=== PATIENT | male | born 1970 | race Caucasian/White ===

== ENCOUNTER → 2016-06-04 | Outpatient (CLI) | payer OTHER, BC ==
--- NOTE | 2016-06-04 17:35 | REP ---
MRI right shoulder without and with IV gadolinium: History: Rule out rotator cuff tear versus spreading malignancy. 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 Pain in the right shoulder. Comparison radiographs 03/21/2016. Gadolinium enhancement dose: 16.6 mL of intravenous ProHance is administered. Technique: Axial, oblique coronal, oblique sagittal imaging planes utilized. T1 and T2-weighted scans are included with without fat saturation. MRI findings: There is some motion artifact on the initial T2 sequences. There is a small glenohumeral joint effusion. There is also a small subacromial subdeltoid bursal effusion. Cortical and medullary bone signal intensity is normal. There is no evidence to suggest hematogenous metastatic disease. There is osteoarthritic hypertrophy at the acromioclavicular joint. Minimal inferolateral acromion process spurring is seen. There is diffuse swelling and increased signal intensity in the supraspinatus tendon on oblique coronal T1-weighted scans consistent with tendonitis tendinosis change. Some T2 hyperintensity is seen in the distal tendon along the bursal surface of the tendon consistent with a partial thickness cuff lesion. No full-thickness rotator cuff tear is seen. There is tendinosis in the distal subscapularis tendon as well. The infraspinatus and biceps tendons appear intact. Post gadolinium enhanced images show the expected synovial enhancement and enhancement along the subdeltoid bursa. There is no enhancement suspicious for malignancy. Impression: Tendonitis tendinosis change in the supraspinatus and subscapularis tendons. Partial-thickness bursal surface distal supraspinatus tendon lesions seen. No labral tear is seen. 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 No evidence to suggest metastatic disease. Signed by Robert Alberto MD 06/04/2016 07:30 P
== END ==
LOC: M RAD 14:52
PROVIDERS: ATTEND Orthopaedic Surgery
DX: M75.81 Other shoulder lesions, right shoulder (principal); M19.011 Primary osteoarthritis, right shoulder
CPT/HCPCS: 73223; A9576

== ENCOUNTER → 2017-12-07 | Outpatient (CLI) | payer BC, OTHER ==
[2017-12-07 08:32] LABS: HEMATOCRIT 41.8 % (42.0-52.0); HEMOGLOBIN 13.8 g/dl (13.5-17.5); MEAN CORPUSCULAR HEMOGLOBIN 31.1 pg (27.0-33.0); MEAN CORPUSCULAR VOLUME 94.1 fl (80.0-96.0); PLATELET COUNT, AUTOMATED 236 10^3/uL (150-450); RED BLOOD COUNT 4.44 10^6/uL (4.30-6.10); RED CELL DISTRIBUTION WIDTH 12.4 % (11.5-14.5); WHITE BLOOD COUNT 6.1 10^3/uL (4.0-10.0)
[2017-12-07 08:59] LABS: ALBUMIN 3.5 GM/DL (3.2-5.2); ALBUMIN/GLOBULIN RATIO 1.17 (1.00-1.93); ALKALINE PHOSPHATASE 59 U/L (45-117); ALT/SGPT 19 U/L (12-78); ANION GAP 6 MEQ/L (8-16); AST/SGOT 12 U/L (7-37); BILIRUBIN,TOTAL 0.6 MG/DL (0.2-1.0); BLOOD UREA NITROGEN 26 MG/DL (7-18); CALCIUM LEVEL 8.7 MG/DL (8.5-10.1); CARBON DIOXIDE LEVEL 29 MEQ/L (21-32); CHLORIDE LEVEL 111 MEQ/L (98-107); CHOLESTEROL LEVEL 194 MG/DL (<200); CHOLESTEROL RISK RATIO 2.586 (<5); CREATININE FOR GFR 1.24 MG/DL (0.70-1.30); GLOMERULAR FILTRATION RATE > 60.0 (>60); GLUCOSE, FASTING 93 MG/DL (70-100); HDL CHOLESTEROL 75 MG/DL (>40); LDL CHOLESTEROL 104.8 MG/DL (<100); NON-HDL-C 119 MG/DL; POTASSIUM SERUM 4.1 MEQ/L (3.5-5.1); PROSTATIC SPECIFIC AG MONITOR 0.39 NG/ML (< 4.0); SODIUM LEVEL 146 MEQ/L (136-145); THYROID STIMULATING HORMONE 0.978 uIU/ML (0.358-3.740); THYROXINE (T4) 8.7 UG/DL (4.5-12.0); TOTAL PROTEIN 6.5 GM/DL (6.4-8.2); TRIGLYCERIDES LEVEL 71 MG/DL (<150)
[2017-12-07 09:01] LABS: TOTAL 25(OH) VITAMIN D 23.2 NG/ML (30.0-100.0)
[2017-12-07 09:02] LABS: TESTOSTERONE 535 NG/DL (241-827)
[2017-12-07 09:03] LABS: TOTAL T3 102.7 NG/DL (60.0-181.0)
[2017-12-07 12:14] LABS: ESTIMATED AVERAGE GLUCOSE 123 MG/DL (60-110); HEMOGLOBIN A1c 5.9 %
== END ==
LOC: M LAB 07:27
DX: I10 Essential (primary) hypertension (principal)
CPT/HCPCS: 84403

== ENCOUNTER → 2018-04-11 | Outpatient (CLI) | payer BC, OTHER ==
[~2018-04-11] MED LIST: E-Z-GAS II EFFERVESCENT PACKET (SODIUM BICARB./CITRIC ACID/SIMETHICONE) As Ordered; E-Z-HD 98% w/w 340GM SUSP BTL As Ordered; E-Z-PAQUE 96% w/w SUSP 176GM BTL As Ordered
== END ==
LOC: M RAD 09:30
DX: K44.9 Diaphragmatic hernia without obstruction or gangrene (principal); R13.12 Dysphagia, oropharyngeal phase; K21.9 Gastro-esophageal reflux disease without esophagitis
CPT/HCPCS: 74241

== ENCOUNTER → 2020-06-25 | Outpatient (CLI) | payer BC, OTHER ==
[2020-06-25 08:24] LABS: HEMATOCRIT 42.9 % (42.0-52.0); HEMOGLOBIN 14.2 g/dl (13.5-17.5); MEAN CORPUSCULAR HEMOGLOBIN 30.7 pg (27.0-33.0); MEAN CORPUSCULAR HGB CONC 33.1 g/dl (32.0-36.5); MEAN CORPUSCULAR VOLUME 92.9 fl (80.0-96.0); PLATELET COUNT, AUTOMATED 204 10^3/uL (150-450); RED BLOOD COUNT 4.62 10^6/uL (4.30-6.10)
[2020-06-25 08:53] LABS: ALBUMIN 3.8 GM/DL (3.2-5.2); BILIRUBIN,TOTAL 0.3 MG/DL (0.2-1.0); CALCIUM LEVEL 8.8 MG/DL (8.5-10.1); CHOLESTEROL RISK RATIO 2.671 (<5); CREATININE FOR GFR 1.49 MG/DL (0.70-1.30); GLOMERULAR FILTRATION RATE 52.9 (>56); POTASSIUM SERUM 4.3 MEQ/L (3.5-5.1); PROSTATIC SPECIFIC AG MONITOR 0.31 NG/ML (< 4.00); THYROID STIMULATING HORMONE 3.37 uIU/ML (0.358-3.740); TOTAL PROTEIN 6.5 GM/DL (6.4-8.2)
--- NOTE | 2020-06-25 09:44 | REP ---
INDICATION: HTN, FATIGUE. COMPARISON: 01/22/2016, 03/15/2014. TECHNIQUE: Two views FINDINGS: Lung snell are well inflated without pleural effusion or acute infiltrate. There is a density calcified granuloma in the right lower lung zone as before. Few small calcified hilar nodes are suggested. There is no infiltrate, effusion or parenchymal mass. The heart, mediastinal and hilar contours stable and unremarkable. The aorta and airway intact. Bony thorax shows some surgical anchors over the right shoulder IMPRESSION: No acute cardiopulmonary change. Stable chest. <Electronically signed by Cornelius Rondon > 06/25/20 [id number]
--- NOTE | 2020-06-27 00:33 | ECGEPIP ---
[facility] Test Date: 2020-06-25 Pat Name: ANDREEA JACOBS Department: Room: - Gender: Male Manager Of Financial: REKHA : 1970 Requested By: Danny Andrade Order Number: [id number] Reading MD: Arnel Murillo Measurements Intervals [place] Rate: 54 P: 58 HI: 176 QRS: 50 QRSD: 92 T: 46 QT: 410 QTc: 388 Interpretive Statements Sinus bradycardia Borderline low limb lead voltages. Last tracing on 01/22/16, 12:23. No significant changes. Electronically Signed on 06-27-2020 0:33:23 EST by Arnel Murillo
== END ==
LOC: M LAB 07:12
PROVIDERS: ATTEND Family Medicine
DX: I10 Essential (primary) hypertension (principal); R53.83 Other fatigue; R00.1 Bradycardia, unspecified

== ENCOUNTER → 2020-07-27 | Outpatient (CLI) | payer BC, OTHER ==
[~2020-07-27] MED LIST changes: -E-Z-GAS II EFFERVESCENT PACKET (SODIUM BICARB./CITRIC ACID/SIMETHICONE) As Ordered; -E-Z-HD 98% w/w 340GM SUSP BTL As Ordered; -E-Z-PAQUE 96% w/w SUSP 176GM BTL As Ordered; +IBUP200C28 PO; +OMEP-218 PO
== END ==
LOC: M LABSMTC 09:57
PROVIDERS: ATTEND Anesthesiology
DX: Z01.812 Encounter for preprocedural laboratory examination (principal); Z20.822 Contact with and (suspected) exposure to COVID-19

== ENCOUNTER 2020-08-01 09:35 | Day surgery (SDC) | payer BC, OTHER ==
[~2020-08-01] VITALS: Ht 182.9 cm; Wt 81.2 kg
[~2020-08-01 09:35] MED LIST changes: +NS 1,000 ML IV ONE
[2020-08-01] MEDS ORDERED: LIDOCAINE 2% 100MG/5ML SDV (FOR ANES.) As Ordered ONE (09:49)
[2020-08-01] MEDS ORDERED: propofoL 200 MG/20 ML VIAL As Ordered ONE ×2 (09:49→11:00)
--- NOTE | 2020-08-01 11:05 | ROOR ---
Patient Name: Corky Morgan Procedure Date: 08/01/2020 10:48 AM Date of : 1970 Age: 49 Room: [facility] Gender: Male Note Status: Finalized Procedure: Total Colonoscopy to Cecum + ileoscopy Indications: Screening for colorectal malignant neoplasm Providers: Bora Cuevas MD Referring MD: STEPHANIE FORBES MD Requesting Provider: Medicines: Monitored Anesthesia Care Complications: No immediate complications. Procedure: Pre-Anesthesia Assessment: - The heart rate, respiratory rate, oxygen saturations, blood pressure, adequacy of pulmonary ventilation, and response to care were monitored throughout the procedure. The Colonoscope was introduced through the anus and advanced to the terminal ileum, with identification of the appendiceal orifice and IC valve. The colonoscopy was performed without difficulty. The patient tolerated the procedure well. The quality of the bowel preparation was excellent. Findings: The perianal and digital rectal examinations were normal. No other significant abnormalities were identified in a careful examination of the remainder of the colon. The terminal ileum appeared normal. The exam was otherwise without abnormality on direct and retroflexion views. Impression: - The examined portion of the ileum was normal. - The examination was otherwise normal on direct and retroflexion views. - No specimens collected. - The exam was otherwise normal to the cecum. Recommendation: - Patient has a contact number available for emergencies. The signs and symptoms of potential delayed complications were discussed with the patient. Return to normal activities tomorrow. Written discharge instructions were provided to the patient. - High fiber diet. - Discharge patient to home. - Continue present medications. - Repeat colonoscopy in 10 years for screening purposes. - Return to referring physician. - The findings and recommendations were discussed with the patient. Procedure Code(s): --- Professional --- 75756, Colonoscopy, flexible; diagnostic, including collection of specimen(s) by brushing or washing, when performed (separate procedure) Diagnosis Code(s): --- Professional --- Z12.11, Encounter for screening for malignant neoplasm of colon CPT copyright 2019 [employer]. All rights reserved. The codes documented in this report are preliminary and upon perl developer review may be revised to meet current compliance requirements. Bora Cuevas MD Bora Cuevas MD 08/01/2020 11:05:15 AM Electronically signed by Bora Cuevas MD Number of Addenda: 0 Note Initiated On: 08/01/2020 10:48 AM Estimated Blood Loss: Estimated blood loss: none.
[2020-08-01 11:26] VITALS: BP 127/76
== END 2020-08-01 11:28 | disposition home or self-care (01) ==
LOC: M OPP 09:35
PROVIDERS: ATTEND Internal Medicine Gastroenterology
DX: Z12.11 Encounter for screening for malignant neoplasm of colon (principal); K21.9 Gastro-esophageal reflux disease without esophagitis; M19.90 Unspecified osteoarthritis, unspecified site; Z85.89 Personal history of malignant neoplasm of other organs and systems; Z92.21 Personal history of antineoplastic chemotherapy; Z92.3 Personal history of irradiation; Z88.5 Allergy status to narcotic agent; Z79.899 Other long term (current) drug therapy

== ENCOUNTER → 2020-09-05 | Outpatient (CLI) | payer BC, OTHER ==
[~2020-09-05] MED LIST changes: -NS 1,000 ML IV ONE
== END ==
LOC: M LABSMTC 09:48
PROVIDERS: ATTEND Otolaryngology Plastic Surgery within the Head & Neck
DX: Z01.812 Encounter for preprocedural laboratory examination (principal); Z11.52 Encounter for screening for COVID-19

== ENCOUNTER → 2020-11-05 | Outpatient (CLI) | payer BC, OTHER ==
[2020-11-05 13:22] LABS: HEMATOCRIT 44.5 % (42.0-52.0); HEMOGLOBIN 15.1 g/dl (13.5-17.5); MEAN CORPUSCULAR HEMOGLOBIN 31.9 pg (27.0-33.0); MEAN CORPUSCULAR HGB CONC 33.9 g/dl (32.0-36.5); MEAN CORPUSCULAR VOLUME 94.1 fl (80.0-96.0); PLATELET COUNT, AUTOMATED 207 10^3/uL (150-450); RED BLOOD COUNT 4.73 10^6/uL (4.30-6.10); WHITE BLOOD COUNT 4.4 10^3/uL (4.0-10.0)
[2020-11-05 13:44] LABS: HEMOGLOBIN A1c 5.5 %
[2020-11-05 13:58] LABS: ALBUMIN 3.9 GM/DL (3.2-5.2); BILIRUBIN,TOTAL 0.5 MG/DL (0.2-1.0); CALCIUM LEVEL 8.9 MG/DL (8.5-10.1); CHOLESTEROL RISK RATIO 2.688 (<5); CREATININE FOR GFR 1.39 MG/DL (0.70-1.30); GLOMERULAR FILTRATION RATE 57.1 (>56); PERCENT SATURATION 51.5 % (19.7-50.0); POTASSIUM SERUM 4.6 MEQ/L (3.5-5.1); PROSTATIC SPECIFIC AG MONITOR 0.42 NG/ML (< 4.00); THYROID STIMULATING HORMONE 3.07 uIU/ML (0.358-3.740); THYROXINE (T4) 7.9 UG/DL (4.5-12.0); TOTAL 25(OH) VITAMIN D 38.8 NG/ML (30.0-100.0); TOTAL T3 122.1 NG/DL (60.0-181.0)
== END ==
LOC: M LAB 11:53
PROVIDERS: ATTEND Family Medicine
DX: D64.9 Anemia, unspecified (principal); R53.83 Other fatigue; E03.9 Hypothyroidism, unspecified

== ENCOUNTER → 2022-04-16 | Outpatient (CLI) | payer OTHER ==
[~2022-04-16] MED LIST changes: +OMEP-173 PO; -OMEP-218 PO
[2022-04-16 10:48] LABS: HEMATOCRIT 44.4 % (42.0-52.0); HEMOGLOBIN 14.7 g/dl (13.5-17.5); MEAN CORPUSCULAR HEMOGLOBIN 31.9 pg (27.0-33.0); MEAN CORPUSCULAR HGB CONC 33.1 g/dl (32.0-36.5); MEAN CORPUSCULAR VOLUME 96.3 fl (80.0-96.0); PLATELET COUNT, AUTOMATED 210 10^3/uL (150-450); RED BLOOD COUNT 4.61 10^6/uL (4.30-6.10)
== END ==
LOC: M RAD 10:13
PROVIDERS: ATTEND Family Medicine
DX: M27.2 Inflammatory conditions of jaws (principal)

== ENCOUNTER → 2022-05-05 | Outpatient (CLI) | payer OTHER | LOC: M RAD 07:05 | DX: C76.0 Malignant neoplasm of head, face and neck (principal); M25.78 Osteophyte, vertebrae; M47.812 Spondylosis without myelopathy or radiculopathy, cervical region; E89.89 Other postprocedural endocrine and metabolic complications and disorders ==

== ENCOUNTER → 2024-06-27 | Outpatient (CLI) | payer OTHER | LOC: M RAD 11:26 | PROVIDERS: ATTEND Family Medicine | DX: J44.9 Chronic obstructive pulmonary disease, unspecified (principal) ==